=== PATIENT | female | born 1990 | race Hispanic/Latino ===

== ENCOUNTER 2019-03-18 15:44 | Emergency (ER) | payer OTHER ==
[2019-03-18] MEDS ORDERED: ONDANSETRON ODT 8 MG TAB SL ONE (16:01)
[2019-03-18] MEDS ORDERED: SODIUM CHLORIDE 0.9% 1000ML 1,000 ML IVS ONE (16:01)
[2019-03-18] MEDS ORDERED: SUCRALFATE 1 GM/10 ML 1 GM UD PO ONE (16:01)
[2019-03-18 16:44] VITALS: O2SAT 99
[2019-03-18] MEDS ORDERED: INSULIN LISPRO 100 UNITS/ML PEN SUBCU ONE (16:58)
[2019-03-18] MEDS ORDERED: metroNIDAZOLE IV PREMIX 500MG 500 MG in PREMIX BAG 1 BAG IVPB ONE (18:24)
[2019-03-18] MEDS ORDERED: metroNIDAZOLE IV PREMIX 500MG 100 ML IVPB ONE (18:32)
[2019-03-18] MEDS ORDERED: cefTRIAXone SODIUM 1 GM VIAL IM ONE (19:23)
--- NOTE | 2019-03-18 19:36 | ED.PDOC ---
History of Present Illness - General Chief Complaint: AUDIO VISUAL MANAGER Problem Stated Complaint: n/v, 40 wks with decreased movement Time Seen by Provider: 03/18/19 16:00 Source: patient - History of Present Illness Initial Comments: The patient is a 28-year-old female presenting to the emergency room secondary to reportedly 1 week of nausea and vomiting. Today she also reports a little bit of decreased movement. She has felt movement within the last hour. No contractions. No loss of fluid. No vaginal bleeding. She does report a mild vaginal discharge. No fever. No diarrhea. She feels like she is dehydrated. Additionally the patient is a insulin-dependent diabetic who has been out of her insulin for the last month. She reports last time she saw her global marketing specialist was approximately 3 weeks. She reports being a little more than 37 weeks by revised dates currently. No real abdominal pain just nausea and vomiting. No syncope. She has felt dizzy at times however. She denies substance abuse.. Timing/Duration: 1 week Severity: moderate Improving Factors: nothing Worsening Factors: nothing Associated Symptoms: loss of appetite, malaise, nausea/vomiting Allergies/Adverse Reactions: Allergies NO KNOWN ALLERGY Allergy (Verified 03/18/19 18:32) Review of Systems - Review of Systems Constitutional: States: malaise, weakness EENTM: States: no symptoms reported Respiratory: States: no symptoms reported Cardiology: States: no symptoms reported Gastrointestinal/Abdominal: States: constipation, nausea, vomiting Genitourinary: States: discharge Musculoskeletal: States: no symptoms reported Skin: States: no symptoms reported Neurological: States: headache - Mild Endocrine: States: increased thirst All other Systems: No Change from Baseline Past Medical History (General) - Patient Medical History Hx Diabetes: Yes - type 1 - Vaccination History Immunizations Up to Date: Yes - Social History Hx Tobacco Use: No Hx Alcohol Use: No Hx Substance Use: No Hx Depression: No - Activities of Daily Living Hospice Agency (if applicable):: None - Female History Patient is a Female of Child Bearing Age (10 -59 yrs old): Yes Patient : Yes Expected Date of Delivery:: 03/27/19 - Triage Comment ED Triage Comment: pt voices she has n/v for about a week and has been able to keep nothing down for one week. she voices she has dark orange urine and is 40 weeks . she voices she has not seen her OB doctor since she was around 20 weeks . Family Medical History - Family History Mother Family History: Unknown Physical Exam - Physical Exam General Appearance: Alert, No apparent distress Eye Exam: bilateral normal Ears, Nose, Throat: hearing grossly normal, normal pharynx Neck: full range of motion, supple Respiratory: lungs clear, normal breath sounds, no respiratory distress, no accessory muscle use Cardiovascular/Chest: normal peripheral pulses, no edema, tachycardia Peripheral Pulses: radial,right: 2+, radial,left: 2+ Gastrointestinal/Abdominal: non tender - Gravid, soft Rectal Exam: deferred, other - Cervical check shows a cervix that is [id number]% effaced - station -3 with mild yellow discharge. Back Exam: no CVA tenderness, no vertebral tenderness Extremity: normal range of motion, non-tender, normal inspection, no pedal edema, normal capillary refill Neurologic: black off worker II-XII nml as tested, alert, normal mood/affect, oriented x 3 Skin Exam: normal color Comments: Vital Signs - 24 hr 03/18/19 03/18/19 03/18/19 16:28 17:00 18:00 Temperature 97.6 F 97.6 F 97.6 F Pulse Rate [ 114 H 114 H 106 H brachial] Respiratory 18 18 18 Rate Blood Pressure 106/91 96/68 103/71 [Left Arm] O2 Sat by Pulse 99 99 99 Oximetry Progress - Progress Progress: 03/18/19 19:37 Laboratory Tests 03/18/19 03/18/19 03/18/19 16:07 16:07 16:07 WBC 6.7 RBC 5.29 Hgb 12.2 Hct 37.2 MCV 70.3 L MCH 23.0 L MCHC 32.7 L RDW 15.6 H Plt Count 256 MPV 9.1 Absolute Neuts (auto) 3.90 Absolute Lymphs (auto) 2.10 Absolute Monos (auto) 0.60 Absolute Eos (auto) 0.00 Absolute Basos (auto) 0.10 Neutrophils % 58.8 Lymphocytes % 31.2 Monocytes % 8.8 Eosinophils % 0.3 L Basophils % 0.9 Normal RBC Morphology Stain quality accept pCO2 pO2 HCO3 ABG pH ABG O2 Saturation ABG Base Excess ABG Deoxyhemoglobin Oxyhemoglobin % Carboxyhemoglobin % Methemoglobin % Sat Calc Total Hemoglobin Sodium 129 L Potassium 3.5 L Chloride 97 L Carbon Dioxide 17 L Anion Gap 18.5 H BUN 9 Creatinine 0.57 L BUN/Creatinine Ratio 15.8 Random Glucose 304 H Hemoglobin A1c 11.2 H Serum Osmolality 269.0 L Lactic Acid Calcium 9.0 Magnesium 1.7 L Total Bilirubin 0.8 AST 15 ALT < 8 L Alkaline Phosphatase 124 H Serum Total Protein 6.5 Albumin 2.5 L Globulin 4.0 H Albumin/Globulin Ratio 0.6 L Amylase 34 Lipase 31 TSH 0.79 Urine Color Urine Appearance Urine pH Ur Specific [place] Urine Protein Urine Glucose (UA) Urine Ketones Urine Blood Urine Nitrite Urine Bilirubin Urine Urobilinogen Ur Leukocyte Esterase Urine RBC Urine WBC Ur Epithelial Cells Amorphous Sediment Urine Bacteria Urine Trichomonas Urine Opiates Screen Urine Barbiturates Ur Phencyclidine Scrn U Amphetamin/Meth Scrn U Benzodiazepines Scrn U Cocaine Metab Screen U Cannabinoids Screen 03/18/19 03/18/19 03/18/19 16:07 17:33 17:58 WBC RBC Hgb Hct MCV MCH MCHC RDW Plt Count MPV Absolute Neuts (auto) Absolute Lymphs (auto) Absolute Monos (auto) Absolute Eos (auto) Absolute Basos (auto) Neutrophils % Lymphocytes % Monocytes % Eosinophils % Basophils % Normal RBC Morphology pCO2 32 pO2 98 HCO3 22.2 ABG pH 7.430 ABG O2 Saturation 98.3 ABG Base Excess -3.4 ABG Deoxyhemoglobin 1.7 Oxyhemoglobin % 96.3 Carboxyhemoglobin % 1.3 Methemoglobin % Sat 0.7 Calc Total Hemoglobin 11.0 L Sodium Potassium Chloride Carbon Dioxide Anion Gap BUN Creatinine BUN/Creatinine Ratio Random Glucose Hemoglobin A1c Serum Osmolality Lactic Acid 1.6 Calcium Magnesium Total Bilirubin AST ALT Alkaline Phosphatase Serum Total Protein Albumin Globulin Albumin/Globulin Ratio Amylase Lipase TSH Urine Color Urine Appearance Urine pH Ur Specific [place] Urine Protein Urine Glucose (UA) Urine Ketones Urine Blood Urine Nitrite Urine Bilirubin Urine Urobilinogen Ur Leukocyte Esterase Urine RBC Urine WBC Ur Epithelial Cells Amorphous Sediment Urine Bacteria Urine Trichomonas Urine Opiates Screen Negative Urine Barbiturates Negative Ur Phencyclidine Scrn Negative U Amphetamin/Meth Scrn Negative U Benzodiazepines Scrn Negative U Cocaine Metab Screen Negative U Cannabinoids Screen Negative 03/18/19 17:58 WBC RBC Hgb Hct MCV MCH MCHC RDW Plt Count MPV Absolute Neuts (auto) Absolute Lymphs (auto) Absolute Monos (auto) Absolute Eos (auto) Absolute Basos (auto) Neutrophils % Lymphocytes % Monocytes % Eosinophils % Basophils % Normal RBC Morphology pCO2 pO2 HCO3 ABG pH ABG O2 Saturation ABG Base Excess ABG Deoxyhemoglobin Oxyhemoglobin % Carboxyhemoglobin % Methemoglobin % Sat Calc Total Hemoglobin Sodium Potassium Chloride Carbon Dioxide Anion Gap BUN Creatinine BUN/Creatinine Ratio Random Glucose Hemoglobin A1c Serum Osmolality Lactic Acid Calcium Magnesium Total Bilirubin AST ALT Alkaline Phosphatase Serum Total Protein Albumin Globulin Albumin/Globulin Ratio Amylase Lipase TSH Urine Color Yellow Urine Appearance Cloudy Urine pH 6.0 Ur Specific [place] 1.020 Urine Protein Negative Urine Glucose (UA) 500 H Urine Ketones 40 H Urine Blood Negative Urine Nitrite Negative Urine Bilirubin Small H Urine Urobilinogen 1.0 Ur Leukocyte Esterase Trace H Urine RBC 3-5 H Urine WBC 20-30 H Ur Epithelial Cells 5-10 Amorphous Sediment 1+ Urine Bacteria 1+ Urine Trichomonas 1-3 H Urine Opiates Screen Urine Barbiturates Ur Phencyclidine Scrn U Amphetamin/Meth Scrn U Benzodiazepines Scrn U Cocaine Metab Screen U Cannabinoids Screen GC chlamydia swab is being sent off. 03/18/19 19:38 The patient is a 28-year-old female G3, P2 at 37+ weeks by revised dates presenting to the emergency room secondary to nausea and vomiting in the last week. She does have a resultant hyponatremia with a sodium of 129 and a bicarb of 17. She is moderately compensated with a pH of 7.43. Blood sugar is uncontrolled at 304. She did receive a dose of insulin here. She is also receiving a liter of IV fluids, nausea medications and a dose of Carafate. He does have trichomonas in her urine. A GC chlamydia swab is being sent from the cervix. She is receiving a dose of Rocephin IM. Nausea appears to be fairly well controlled. heart tones are in the 150s on the ultrasound and amniotic fluid index is at 5 cm. The child does appear active. The child is being sent to [facility] where her global marketing specialist practices. Certainly additional fluids along with management of the nausea and vomiting as well as diabetes are warranted. Additionally the obviously needs further evaluation and monitoring. The patient will need continued treatment for the trichomonas. Transferring for specialty care. sidra stephens [id number] Departure - Departure Clinical Impression: Trichomonal cystitis, Dehydration, Nausea/vomiting in , Hyponatremia Hyperglycemia due to type 2 diabetes mellitus Qualifiers: Diabetes mellitus mcc insulin use: with mcc use Qualified Code(s): E11.65 - Type 2 diabetes mellitus with hyperglycemia; Z79.4 - tank terminal gauger (current) use of insulin Disposition: Transfer to Hospital Condition: Fair Departure Forms: ED Discharge - Pt. Copy, Patient Portal Self Enrollment Transfer to Outside Facility - Transfer Information Decision to Transfer Date: 03/18/19 Decision to Transfer Time: 19:42 Reason for Transfer: required specialist not available Accepting Provider:: dr fontanez Accepting Facility: [facility]
[2019-03-18 19:38] VITALS: TEMP 97.7
[2019-03-18] MEDS ORDERED: LIDOCAINE 1% 2 ML VIAL INJ ONE (19:43)
[2019-03-18 20:12] VITALS: BP 122/82
== END 2019-03-18 20:12 | disposition short-term general hospital (02) ==
LOC: ER 15:44
DX: O98.313 Other infections with a predominantly sexual mode of transmission complicating pregnancy, third trimester (principal); A59.03 Trichomonal cystitis and urethritis; O21.1 Hyperemesis gravidarum with metabolic disturbance; E87.1 Hypo-osmolality and hyponatremia; O24.113 Pre-existing type 2 diabetes mellitus, in pregnancy, third trimester; E11.65 Type 2 diabetes mellitus with hyperglycemia; Z3A.40 40 weeks gestation of pregnancy; Z79.4 Long term (current) use of insulin
CPT/HCPCS: 36415; 36600; 80053; 80307; 81001; 82150; 82803; 82805; 83036; 83605; 83690; 83735; 84443; 85025; 87086; 87491; 87502; 87591; J0696; J3490; J7030